=== PATIENT | female | born 1940 | race Caucasian/White ===

== ENCOUNTER 2021-08-02 10:01 | Emergency (ER) | payer OTHER, SELFPAY ==
[2021-08-02 10:23] VITALS: BP 135/75; PULSE 60; RESP 16; TEMP 35.9; O2SAT 100
--- NOTE | 2021-08-02 10:23 | ECG_ITS ---
Measurements Intervals [place] Rate: 48 P: 52 UT: 133 QRS: 20 QRSD: 73 T: 51 QT: 414 QTc: 373 Interpretive Statements SINUS BRADYCARDIA EARLY PRECORDIAL R/S TRANSITION ABNORMAL ECG Electronically Signed On 08-02-2021 12:14:54 [employer] by Salomon Guevara D.O.
--- NOTE | 2021-08-02 10:47 | ED.GENADULT ---
HPI - General Adult General Chief complaint: Dizziness Stated complaint: faint/arm pain Source: patient and RN notes reviewed Limitations: no limitations History of Present Illness HPI narrative: The vaccinated patient--a non-smoker/nondrinker on minimal medications for HLD, and hx bradycardia--presents with weakness. Patient states she has 1/2-week history upon arising and positional changes of lightheadedness. No fever, cough, URI?sinusitis, vertigo, vomiting/diarrhea/dehydration, frequency/dysuria, head?chest?abdominal pains; no loss of taste/smell, S OB chest pain, palpitations,no speech?visual changes, lateralizing weakness. Patient last blood tests were about 1/2-year ago; she declines to go to hospital Related Data Home Medications Medication Instructions Recorded Confirmed oxybutynin chloride 08/02/21 simvastatin mg 08/02/21 Allergies Allergy/AdvReac Type Severity Reaction Status Date / Time sulfamethoxazole Allergy Unknown Hives Verified 08/02/21 10:14 trimethoprim Allergy Unknown Hives Verified 08/02/21 10:14 Review of Systems Review of Systems: General/Constitutional: No weight loss,fever Eyes: N0: Redness,discharge Ears/Nose/Throat: No: Epistaxis,ear discharge Respiratory: Denies: Hemoptysis Gastrointestinal: No Vomiting, Bleeding-rectal Skin: No Lumps, eruption Neurologic: No Focal Weakness,Sz Hematologic: Denies: Petechiae/Purpura Psychiatric: No: Suicida ideationl All Other Systems: Reviewed and Negative [facility] Comments At time of signature, agree with nursing past medical, surgical, social and family history. There is no relevant family history pertinent to the presenting complaint Exam Narrative: General Appearance: Well appearing, No distress EYE: PERRLA, EOMI, no nystagmus, conjunctiva clear Ears: External ear normal Nose: Normal nose Mouth/Throat: Normal appearing, Normal lips Neck: Supple Respiratory: Airway patent, No respiratory distress Cardiovascular: Bryan, RRR Abdomen: Soft, Non-tender, Musculoskeletal: Full ROM Skin: Warm, Dry Neurological: A&O x3, CN II-X intact Psychiatric: Normal mood, Normal affect Course Course Emergency Course: EKG: Sinus bradycardia at 48 ,HI 0.13, QRS 0.07, QTC 0.382, axis 30 Vital Signs Vital signs: Vital Signs Temperature 96.6 F L 08/02/21 10:23 Pulse Rate 60 08/02/21 10:23 Respiratory Rate 16 08/02/21 10:23 Blood Pressure 135/75 08/02/21 10:23 Pulse Oximetry 100 08/02/21 10:23 Temperature 96.6 F L 08/02/21 10:23 Pulse Rate 60 08/02/21 10:23 Respiratory Rate 16 08/02/21 10:23 Blood Pressure 135/75 08/02/21 10:23 Pulse Oximetry 100 08/02/21 10:23 Medical Decision Making Vital Signs Vital Signs: Vital Signs Temperature 96.6 F L 08/02/21 10:23 Pulse Rate 60 08/02/21 10:23 Respiratory Rate 16 08/02/21 10:23 Blood Pressure 135/75 08/02/21 10:23 Pulse Oximetry 100 08/02/21 10:23 Temperature 96.6 F L 08/02/21 10:23 Pulse Rate 60 08/02/21 10:23 Respiratory Rate 16 08/02/21 10:23 Blood Pressure 135/75 08/02/21 10:23 Pulse Oximetry 100 08/02/21 10:23 Lab Data Labs: Urine Glucose Negative Reference Range: Negative Urine Bilirubin Negative Reference Range: Negative Urine Ketone Negative Reference Range: Negative Urine Specific [place] 1.030 Reference Range:1.001-1.035 Urine Blood Negative Reference Range: Negative * * Urine pH 5.5 Reference Range: 5.0-9.0 Urine Protein Negative
== END 2021-08-02 11:30 | disposition home or self-care (01) ==
PROVIDERS: Emergency Provider Emergency Medicine
DX: R42 Dizziness and giddiness (principal); R00.1 Bradycardia, unspecified; E78.00 Pure hypercholesterolemia, unspecified; K21.9 Gastro-esophageal reflux disease without esophagitis; M81.0 Age-related osteoporosis without current pathological fracture
CPT/HCPCS: 81003; 93005; 99203; G0463

== ENCOUNTER 2022-03-19 01:30 | Emergency (ER) | payer OTHER, SELFPAY ==
--- NOTE | ~2022-03-19 | CT_ITS ---
EXAMINATION: CT abdomen pelvis wo con DATE: 03/19/2022 04:47 INDICATION: Left flank pain. TECHNIQUE: Computed tomography (CT) of the abdomen and pelvis was performed without intravenous contr ast. Automated exposure control and iterative reconstruction technique were employed. The dose-length product was 311.97 mGy-cm. COMPARISON: None. FINDINGS: The visualized portions of the lung bases demonstrate mild atelectasis. No pleural effusion . The heart size is normal. No pericardial effusion. There is a small sliding hiatal hernia. The live r, spleen, gallbladder, pancreas, adrenal glands, and right kidney are normal. There is a 2 mm stone in left kidney. There is a 9 mm cyst in left kidney. There is mild left hydronephrosis and hydrourete r. There is a 4 mm stone at left ureterovesicular junction. There is diverticulosis of the colon with out evidence of diverticulitis. There are no dilated loops of bowel. The appendix is not visualized. There is severe lumbar spondylosis. IMPRESSION: 1. 4 mm stone at left ureterovesicular junction with mild left hydronephrosis and hydroureter. 2. 2 mm nonobstructing left kidney stone. Reviewed, dictated and finalized at location A. IMPRESSION: 1. 4 mm stone at left ureterovesicular junction with mild left hydronephrosis a nd hydroureter. 2. 2 mm nonobstructing left kidney stone.
[2022-03-19 01:35] VITALS: BP 147/51; PULSE 66; RESP 16; TEMP 36.2; O2SAT 100
[2022-03-19 02:08] LABS: Bacteria Urine Trace /hpf; Calcium Oxalate Crystals Urine Present /hpf; Mucus Urine Rare /lpf; RBC Urine 51-75 /hpf (0-2); Squamous Epithelial Cell Urine Rare /hpf (Few)
[2022-03-19 02:09] LABS: Appearance Urine Clear (Clear); Bilirubin Urine 1+ (Negative); Color Urine Orange (Yellow); Glucose Urine UA Trace mg/dL (Negative); Ketones Urine 1+ mg/dL (Negative); Leukocyte Esterase Ur 3+ LEU/UL (Negative); Nitrate Urine Positive (Negative); Protein Urine 2+ mg/dL (Negative)
[2022-03-19 02:13] LABS: Add Urine Microscopic? YES; Blood Urine Trace (Negative)
[2022-03-19] MEDS: SODIUM CHLORIDE 0.9% IV 1,000 ML 999 ML IV CONT (03:55)
[2022-03-19] MEDS: ONDANSETRON INJ 4 MG/2 ML VIAL IV PUSH (03:56)
[2022-03-19] MEDS: KETOROLAC 15 MG/ML VIAL (*BKC) IV PUSH (03:56)
[2022-03-19 04:03] LABS: Basophils Percent Auto 0.2 % (0.2-1.2); Eosinophils Percent Auto 0.3 % (0-4.4); Hematocrit 34.5 % (37.0-47.0); Hemoglobin 11.1 g/dL (12.0-15.0); Immature Granulocyte Absolute 0.04 K/mm3 (0.00-0.031); Immature Granulocyte Percent A 0.4 % (0-0.5); Lymphocytes Absolute Auto 0.75 K/mm3 (0.9-3.2); Lymphocytes Percent Auto 8.3 % (18.3-44.2); Mean Corpuscular HGB Conc 32.2 g/dl (32-36); Mean Corpuscular Hemoglobin 29.3 pg (26-34); Mean Platelet Volume 11.6 fl (7.4-10.4); Monocytes Absolute Auto 0.2 K/mm3 (0.1-0.6); Monocytes Percent Auto 1.7 % (2.6-8.5); Neutrophils Absolute Auto 8.1 K/mm3 (1.3-6.7); Neutrophils Percent Auto 89.1 % (45.5-73.1); Platelet Count Result 163 k/mm3 (150-375); Red Blood Count 3.79 M/mm3 (4.2-5.4); Red Cell Distribution Width 12.6 % (11.5-14.5); White Blood Count 9.1 K/mm3 (4.5-10.0)
[2022-03-19 04:16] LABS: Anion Gap 9 mmol/L (8-16); Blood Urea Nitrogen 29 mg/dL (7-17); Calcium 8.7 mg/dL (8.4-10.2); Carbon Dioxide 28 mmol/L (22-30); Chloride 100 mmol/L (98-107); Estimated CRCL calculation 30 ml/min; Estimated Glomerular Filt Rate 43; Glucose 125 mg/dL (65-110); Potassium 4.1 mmol/L (3.4-5.0); Sodium 137 mmol/L (137-145)
[2022-03-19 06:16] VITALS: BP 133/55; PULSE 68; RESP 18; O2SAT 97
--- NOTE | 2022-03-19 06:52 | ED.GENADULT ---
HPI - General Adult General Chief complaint: Urogenital-Female Stated complaint: ? UTI BACK PAIN Time Seen by Provider: 03/19/22 02:29 History of Present Illness HPI narrative: Patient is an 81-year-old female who presents ER with concerns for UTI. Reports sudden onset cramping in her abdomen and suprapubic region. She has frequent urination. No dysuria. Last week she had similar symptoms and was treated with ciprofloxacin for UTI. She does not currently have fevers or chills or sweats. She endorses some back pain as well left side. Alleviating factors. No history of kidney stones. Related Data Home Medications Medication Instructions Recorded Confirmed oxybutynin chloride 5 mg tablet 08/02/21 simvastatin 40 mg tablet mg 08/02/21 escitalopram oxalate 10 mg tablet mg 03/19/22 Allergies Allergy/AdvReac Type Severity Reaction Status Date / Time sulfamethoxazole Allergy Unknown Hives Verified 03/19/22 03:04 trimethoprim Allergy Unknown Hives Verified 03/19/22 03:04 Review of Systems Review of Systems: All systems reviewed & are unremarkable except as noted in HPI and below Constitutional: Constitutional: Denies chills and Denies fever(s) Cardiovascular: Cardiovascular: Denies chest pain and Denies rapid heart rate Gastrointestinal: Gastrointestinal: Reports abdominal pain, Denies diarrhea, Reports nausea and Denies vomiting Genitourinary: Genitourinary: Denies hematuria, Reports nocturia, Reports dysuria and Reports flank pain PMFSH Past Medical History Medical History (Updated 03/19/22 @ 06:58 by Armando George MD) Asthma Depression Surgical History Surgical History (Updated 03/19/22 @ 06:54 by Armando George MD) History of hysterectomy History of tonsillectomy Social History Social History (Updated 03/19/22 @ 06:54 by Armando George MD) Smoking status: Never smoker Exam Narrative: GENERAL: Well-appearing, well-nourished, and in no acute distress. HEAD: Normocephalic, atraumatic. EYES: PERRL and EOMI. ENT: Mucous membranes moist. CHEST: Clear to auscultation. No respiratory distress. HEART: Regular rate and rhythm. Normal peripheral pulses. ABDOMEN: Soft, nontender, nondistended. EXTREMITIES: Normal range of motion. No edema. NEURO: Alert and oriented x3. PSYCH: Normal mood and affect. Course Vital Signs Vital signs: Vital Signs Temperature 97.1 F L 03/19/22 01:35 Pulse Rate 66 03/19/22 01:35 Respiratory Rate 16 03/19/22 01:35 Blood Pressure 147/51 H 03/19/22 01:35 Pulse Oximetry 100 03/19/22 01:35 Oxygen Delivery Room Air 03/19/22 01:35 Temperature 97.1 F L 03/19/22 01:35 Pulse Rate 68 03/19/22 06:16 Respiratory Rate 18 03/19/22 06:16 Blood Pressure 133/55 L 03/19/22 06:16 Pulse Oximetry 97 03/19/22 06:16 Oxygen Delivery Room Air 03/19/22 01:35 Medical Decision Making Vital Signs Vital Signs: Vital Signs Temperature 97.1 F L 03/19/22 01:35 Pulse Rate 66 03/19/22 01:35 Respiratory Rate 16 03/19/22 01:35 Blood Pressure 147/51 H 03/19/22 01:35 Pulse Oximetry 100 03/19/22 01:35 Oxygen Delivery Room Air 03/19/22 01:35 Temperature 97.1 F L 03/19/22 01:35 Pulse Rate 68 03/19/22 06:16 Respiratory Rate 18 03/19/22 06:16 Blood Pressure 133/55 L 03/19/22 06:16 Pulse Oximetry 97 03/19/22 06:16 Oxygen Delivery Room Air 03/19/22 01:35 Lab Data Result diagrams: 03/19/22 03:46 03/19/22 03:46 Labs: Lab Results 03/19/22 03/19/22 03/19/22 Range/Units 01:52 03:46 03:46 WBC 9.1 (4.5-10.0) K/mm3 RBC 3.79 L (4.2-5.4) M/mm3 Hgb 11.1 L (12.0-15.0) g/dL Hct 34.5 L (37.0-47.0) % MCV 91.0 (80-100) fl MCH 29.3 (26-34) pg MCHC 32.2 (32-36) g/dl RDW 12.6 (11.5-14.5) % Plt Count 163 (150-375) k/mm3 MPV 11.6 H (7.4-10.4) fl Immature Gran % (Auto) 0.4 (0-0.5) % Neut % (Auto) 89.1 H (45.5-73.1)
[2022-03-19 07:15] VITALS: BP 134/59; PULSE 64; RESP 18; O2SAT 98
== END 2022-03-19 07:17 | disposition home or self-care (01) ==
PROVIDERS: Emergency Provider Emergency Medicine
DX: N20.1 Calculus of ureter (principal); J45.909 Unspecified asthma, uncomplicated; F32.9 Major depressive disorder, single episode, unspecified
CPT/HCPCS: 36415; 74176; 80048; 81001; 85025; 87086; 87088; 96361; 96374; 96375; 99284; J1885; J2405; J7030

== ENCOUNTER 2023-09-01 09:05 | Emergency (ER) | payer OTHER, SELFPAY ==
[2023-09-01 09:10] VITALS: BP 112/87; PULSE 77; RESP 16; TEMP 36.4; O2SAT 100
--- NOTE | 2023-09-01 09:18 | ED.FEMALEGU ---
HPI - Female Genitourinary General Chief complaint: Urogenital-Female Stated complaint: Uti symptoms Time Seen by Provider: 09/01/23 09:10 Source: patient Mode of arrival: ambulatory Limitations: no limitations History of Present Illness HPI Narrative: Roro is an 83-year-old female patient presenting to the clinic today with complaints of possible urinary tract infections. She is reporting some burning, lower abdominal discomfort, frequency, and low urine output that started this morning. She denies any fever chills. She denies any flank pain. Related Data Home Medications Medication Instructions Recorded Confirmed oxybutynin chloride 5 mg tablet 5 mg PO DAILY 08/02/21 09/01/23 simvastatin 40 mg tablet 40 mg PO DAILY 08/02/21 09/01/23 escitalopram oxalate 10 mg tablet 10 mg PO DAILY 03/19/22 09/01/23 Allergies Allergy/AdvReac Type Severity Reaction Status Date / Time sulfamethoxazole Allergy Unknown Hives Verified 09/01/23 09:07 trimethoprim Allergy Unknown Hives Verified 09/01/23 09:07 Review of Systems Review of Systems: Pertinent positives per HPI. Patient denies any fever, chills, rash, headache, visual changes, dizziness, cough, runny nose, sore throat, shortness of breath, chest pain, palpitations, nausea, vomiting, diarrhea, constipation, abdominal pain, or any urinary issues. PMFSH Past Medical History Medical History Asthma Depression Surgical History Surgical History History of hysterectomy History of tonsillectomy Social History Social History Smoking status: Never smoker Comments At the time of my signature, I reviewed and agree with the nursing past medical, surgical, social, and family history. There is no relevant family history pertinent to the patient complaint. Exam Narrative: General: Well-developed, well nourished, in no apparent distress. Head: Normocephalic, atraumatic. Cardio: Regular rate and rhythm, s1 and s2 normal, no murmur appreciated. Resp: Clear to auscultation bilaterally, no rhonchi, rales, wheezing or rubs. Abdomen: Soft, pliable, bowel sounds present in all quadrants, mild tender to palpation over the suprapubic bladder, no organomegly, no CVAT tenderness. Course Course Emergency Course: Portions of this record may have been created with voice recognition software. Level of Care: Express Care Visit Vital Signs Vital signs: Vital Signs Temperature 36.4 C L 09/01/23 09:10 Pulse Rate 77 09/01/23 09:10 Respiratory Rate 16 09/01/23 09:10 Blood Pressure 112/87 09/01/23 09:10 Pulse Oximetry 100 09/01/23 09:10 Temperature 36.4 C L 09/01/23 09:10 Pulse Rate 77 09/01/23 09:10 Respiratory Rate 16 09/01/23 09:10 Blood Pressure 112/87 09/01/23 09:10 Pulse Oximetry 100 09/01/23 09:10 Vital signs reviewed MDM - Female Genitourinary MDM Narrative Medical decision making narrative: At the time of visit patient is resting comfortably on the exam table. Patient appears to be nontoxic. UA is positive for 2+ leukocytes, 3+ blood, and 1+ protein. We will send urine for culture. Will place patient on Augmentin. Supportive measures were discussed with the patient and they voiced understanding discharge instructions and agrees to treatment plan. Return precautions reviewed Differential Diagnosis Differential diagnosis: Likely urinary tract infection and cystitis Discharge Plan Discharge Clinical Impression: Urinary tract infection Qualifiers: Urinary tract infection type: acute cystitis Hematuria presence: with hematuria Qualified Code(s): N30.01 - Acute cystitis with hematuria Patient Disposition: Home, Self-Care Condition: Stable Instructions: Antibiotic Form, Urinary Tract Infection in Older Adults (ED) Additional Instructions: UA
== END 2023-09-01 09:30 | disposition home or self-care (01) ==
PROVIDERS: Emergency Provider Nurse Practitioner Family
DX: N30.01 Acute cystitis with hematuria (principal); B96.89 Other specified bacterial agents as the cause of diseases classified elsewhere; J45.909 Unspecified asthma, uncomplicated; F32.A Depression, unspecified
CPT/HCPCS: 81003; 87077; 87086; 87186; 99213; G0463

== ENCOUNTER 2024-07-29 13:42 | Emergency (ER) | payer OTHER, SELFPAY ==
[2024-07-29 14:06] VITALS: BP 138/79; PULSE 65; RESP 18; TEMP 36.2; O2SAT 100
--- NOTE | 2024-07-29 14:12 | ED_ITS ---
HPI - Female Genitourinary General Chief complaint: Urogenital-Female Stated complaint: URINE IRRIATION Time Seen by Provider: 07/29/24 14:15 Source: patient and RN notes reviewed Mode of arrival: ambulatory Limitations: no limitations History of Present Illness HPI Narrative: 84 y/o female presented for c/o concern for UTI. Endorses burning with urination this morning. Endorses frequent uti's, about every 3 months, and has followed with urology. She contacted their office but did not receive a return call. Took AZO this morning. Denies hematuria, nausea, vomiting, abdominal pain, flank pain, constipation, diarrhea, fevers or chills. Related Data Home Medications ?Medication ?Instructions ?Recorded ?Confirmed ?Last Taken ?Type oxybutynin chloride 5 mg tablet 5 mg PO DAILY 08/02/21 09/01/23 Unknown History simvastatin 40 mg tablet 40 mg PO DAILY 08/02/21 09/01/23 Unknown History levothyroxine 25 mcg tablet 25 mcg PO DAILY 07/29/24 Unknown History Allergies Allergy/AdvReac Type Severity Reaction Status Date / Time sulfamethoxazole Allergy Unknown Hives Verified 07/29/24 14:13 trimethoprim Allergy Unknown Hives Verified 07/29/24 14:13 Review of Systems Review of Systems: CONSTITUTIONAL: Denies body aches, fever, chills, or sweats. CARDIOVASCULAR: Denies chest pain, palpitations, or edema. RESPIRATORY: Denies cough or dyspnea. GASTROINTESTINAL: Denies abdominal pain, nausea, vomiting, or diarrhea. GENITOURINARY: Reports dysuria, denies frequency, urgency, hematuria, flank pain SKIN: Denies rash, itching, or wounds. MUSCULOSKELETAL: Denies back pain or myalgia. [facility] Past Medical History Medical History Depression Asthma Surgical History Surgical History History of hysterectomy History of tonsillectomy Social History Social History Smoking status: Never smoker Comments At time of signature, I have reviewed and agree with nursing past medical, surgical, social and family history unless otherwise noted. Please see nursing chart for further information. There is no relevant family history pertinent to the presenting complaint Exam Narrative: GENERAL: Well-appearing and in no acute distress. ENT: Mucous membranes pink and moist. CHEST: No respiratory distress. Clear to auscultation. HEART: Regular rate and rhythm. ABDOMEN: Soft, nontender, nondistended, normal active bowel sounds. No CVA tenderness SKIN: Warm, dry, no rash. NEURO: No focal deficits. Alert and oriented x3. Gait steady. PSYCH: Normal affect. Course Course Emergency Course: Patient is aware of diagnosis, understands and agrees to treatment plan. Anticipatory guidance given. Patient agrees to follow-up as directed and is aware of reasons to seek care at the emergency department. Portions of this record may have been created with voice recognition software Level of Care: Express Care Visit Vital Signs Vital signs: Vital Signs Temperature 97.1 F L 07/29/24 14:06 Pulse Rate 65 07/29/24 14:06 Respiratory Rate 18 07/29/24 14:06 Blood Pressure 138/79 07/29/24 14:06 Pulse Oximetry 100 07/29/24 14:06 Oxygen Delivery Room Air 07/29/24 14:06 Temperature 97.1 F L 07/29/24 14:06 Pulse Rate 65 07/29/24 14:06 Respiratory Rate 18 07/29/24 14:06 Blood Pressure 138/79 07/29/24 14:06 Pulse Oximetry 100 07/29/24 14:06 Oxygen Delivery Room Air 07/29/24 14:06 Reviewed MDM - Female Genitourinary MDM Narrative Medical decision making narrative: Discussed physical exam findings, reviewed the urine culture from 08/2023 which grew Klebsiella aerogenes. Discussed risk of tendon rupture while taking cipro, v/u. States her urologist usually gives her this. Advised supportive measures and signs/symptoms to go to the ER. Pt is appropriate for outpt treatment and f/u. Differential Diagnosis Differential diagnosis: Likely urinary tract infection, bacterial vaginosis, vaginitis, cystitis and other Discharge Plan Discharge Clinical Impression: Urinary tract infection Patient Disposition: Home, Self-Care Condition: Stable Instructions: Antibiotic Form, Urinary Tract Infection in Older Adults (ED) Additional Instructions: Take the antibiotic as prescribed. We discussed the risk of tendon problems while taking this medication. Monitor for joint pain and call your doctor if you develop any problems. The urine will be sent of for a culture to identify what type of bacteria is causing your infection. If the culture shows that the antibiotic will not get rid of your infection, you will be notified and a new antibiotic will be called in for you. Increase water intake you will need to follow up with your PCP, call to schedule an appointment. Go to the ER for any worsening symptoms or concerns Patient Language: Kyr[place]z Prescriptions: New ciprofloxacin HCl 250 mg tablet 250 mg PO Q12H 3 Days Qty: 6 0RF No Action simvastatin 40 mg tablet 40 mg PO DAILY oxybutynin chloride 5 mg tablet 5 mg PO DAILY levothyroxine 25 mcg tablet 25 mcg PO DAILY Follow-up/Referrals: UNKNOWN,DOCTOR [Primary Care Provider] - Time of Disposition: 14:29
[2024-07-29 14:26] LABS: EDUAAPPEAR Cloudy; EDUABILI 1+ (Negative); EDUABLOOD 2+ (Negative); EDUACOLOR1 Orange; EDUAGLUCOSE Trace (Negative); EDUAKETONE Trace (Negative); EDUALEUKO 3+ (Negative); EDUANITRATE Positive (Negative); EDUAPROTEIN 2+ (Negative); EDUASPGRAVITY 1.005
== END 2024-07-29 14:36 | disposition home or self-care (01) ==
PROVIDERS: Emergency Provider Nurse Practitioner Family
DX: N39.0 Urinary tract infection, site not specified (principal); J45.909 Unspecified asthma, uncomplicated
CPT/HCPCS: 81003; 87086; 99213; G0463